=== PATIENT | female | born 1965 | race Caucasian/White ===

== ENCOUNTER 2019-04-05 10:29 | Emergency (ER) | payer OTHER ==
[~2019-04-05] VITALS: Ht 157.5 cm; Wt 73.5 kg
[2019-04-05 10:30] VITALS: BP_SYST 123
[2019-04-05] MEDS ORDERED: KETOROLAC TROMETHAMINE 60 MG/2 ML VIAL IM ONE (11:45)
[2019-04-05 13:07] VITALS: BP_SYST 118
== END 2019-04-05 13:05 | disposition home or self-care (01) ==
LOC: SED 10:29
DX: R10.32 Left lower quadrant pain (principal); Z90.49 Acquired absence of other specified parts of digestive tract; Z90.89 Acquired absence of other organs
CPT/HCPCS: 74018; 96372; 99283; J1885

== ENCOUNTER 2019-12-10 14:57 | Emergency (ER) | payer OTHER ==
[~2019-12-10] VITALS: Ht 157.5 cm; Wt 77.1 kg
[2019-12-10 15:09] VITALS: BP_SYST 171
--- NOTE | 2019-12-10 15:10 | NUR ---
Patient to ER bed hallway to gown for evaluation. Side rails up.
--- NOTE | 2019-12-10 15:16 | NUR ---
Patient came in from home for evaluation. Patient is awake, alert, and oriented x4. Patient states she has had left sided facial tingling since last night, she had 1 episode 1 week ago. No other complaints at this time.
--- NOTE | 2019-12-10 15:17 | NUR ---
ER Dr. Cruz at bedside examining patient.
[2019-12-10] MEDS ORDERED: cloNIDine HCL 0.1 MG TABLET PO ONE (15:30)
--- NOTE | 2019-12-10 15:55 | NUR ---
Patient ambulated to radiology, accompanied by reuse technician.
--- NOTE | 2019-12-10 15:59 | NUR ---
Returned from radiology, back to [facility].
--- NOTE | 2019-12-10 16:24 | NUR ---
Patient given written and verbal discharge instructions and verbalizes understanding. ER MD discussed with patient the results and treatment provided. Patient in stable condition. ID arm band removed. Rx of aspirin, hctz given. Patient educated on pain management and to follow up with PMD. Pain Scale 0/10. Opportunity for questions provided and answered. Medication side effect fact sheet provided.
[2019-12-10 16:25] VITALS: BP_SYST 146
== END 2019-12-10 16:25 | disposition home or self-care (01) ==
LOC: SED 14:57
DX: R20.2 Paresthesia of skin (principal); I10 Essential (primary) hypertension
CPT/HCPCS: 70450-TC; 99284

== ENCOUNTER 2022-06-20 13:00 | Emergency (ER) | payer BC, OTHER ==
[~2022-06-20] VITALS: Ht 157.5 cm; Wt 76.2 kg
--- NOTE | 2022-06-20 14:07 | NUR ---
MD DR. MENDEZ AT BEDSIDE EXAMINING PATIENT.
[2022-06-20 14:18] VITALS: BP_SYST 136
--- NOTE | 2022-06-20 14:20 | NUR ---
Patient to ER bed HALLWAY1 to [facility] for evaluation. Side rails up. Report RECEIVED FROM ALFA BEY.
--- NOTE | 2022-06-20 14:21 | NUR ---
PT CAME TO ED FROM HOME WITH C/O RT LOWER ABD PAIN X 2 WEEKS. PT STATES PAIN IS WORSE AT NIGHT AND CAUSES HER TO WAKEUP. PT HAS HX OF HYSTERECTOMY, GALLBLADDER REMOVAL AND BUNYON SX X2. PATIENT DENIES ANY OTHER MEDICAL HX. PATIENT A&OX4, CALM AND COOPERATIVE, VSS. CARE TO BE GIVEN ORDERED BY PROVIDER.
[2022-06-20 15:13] LABS: BASOPHILS % (AUTO) 0.3 % (0.0-2.0); EOSINOPHILS % (AUTO) 0.4 % (0.0-4.0); HEMATOCRIT 42.4 % (36-48); LYMPHOCYTES # (AUTO) 1.5 K/uL (1.0-5.5); LYMPHOCYTES % (AUTO) 23.5 % (20.5-51.5); MEAN CORPUSCULAR HEMOGLOBIN 30 pg (27-31); MEAN CORPUSCULAR HGB CONC 33 % (32-36); MEAN CORPUSCULAR VOLUME 90 fL (79.0-98.0); MONOCYTES # (AUTO) 0.4 K/uL (0.0-1.0); MONOCYTES % (AUTO) 5.7 % (1.7-9.3); NEUTROPHILS # (AUTO) 4.4 K/uL (1.8-7.7); NEUTROPHILS % (AUTO) 70.1 % (40.0-70.0); PLATELET COUNT (AUTO) 241 K/uL (130-430); RED BLOOD CELL COUNT(AUTO) 4.72 MIL/uL (4.2-6.2); RED CELL DISTRIBUTION WIDTH 13.6 % (9.0-15.0); WHITE BLOOD COUNT (AUTO) 6.3 K/uL (4.8-10.8)
[2022-06-20 15:19] LABS: ANION GAP 7 (5-15); CALCIUM 9.6 mg/dL (8.4-11.0); CHLORIDE 102 mmol/L (98-107); CREATININE 0.67 mg/dL (0.55-1.30); GLUCOSE 103 mg/dL (70-99); UREA NITROGEN, BLOOD 14 mg/dL (8-21)
[2022-06-20 15:20] LABS: GFR AFRICAN AMERICAN 116 mL/min (>90)
[2022-06-20 15:25] LABS: ALANINE AMINOTRANSFERASE 26 U/L (12-78); ALBUMIN 4.3 g/dL (3.4-4.8); AMYLASE 52 U/L (0-100); ASPARTATE AMINOTRANSFERASE 20 U/L (10-37); C-REACTIVE PROTEIN QUANT 0.7 mg/dL (0-0.5); LIPASE 248 U/L (73-393); TOTAL BILIRUBIN 0.9 mg/dL (0.0-1.0)
[2022-06-20 15:52] LABS: ACETONE, SERUM NEGATIVE (NEGATIVE)
[2022-06-20 16:16] LABS: BILIRUBIN,URINE NEGATIVE (NEGATIVE); BLOOD, URINE NEGATIVE (NEGATIVE); COLOR,URINE YELLOW (YELLOW); GLUCOSE,URINE NEGATIVE (NEGATIVE); KETONES,URINE NEGATIVE (NEGATIVE); LEUKOCYTE ESTERASE ,URINE TRACE (NEGATIVE); NITRITE, URINE NEGATIVE (NEGATIVE); PH,URINE 5.5 (5.0-8.0); PROTEIN URINE NEGATIVE (NEGATIVE); UROBILINOGEN,URINE 0.2 (0.2-1.0)
[2022-06-20 16:19] LABS: CLARITY/URINE SLIGHTLY HAZY (CLEAR)
[2022-06-20 16:44] LABS: BACTERIA,URINE FEW /HPF (None Seen); RBC,URINE 0-3 /HPF (0-3)
[2022-06-20] MEDS ORDERED: HYDR-3917 PO (16:46)
[2022-06-20] MEDS ORDERED: IBUP-1969 PO (16:46)
[2022-06-20] MEDS ORDERED: ONDA-8 TL (16:58)
--- NOTE | 2022-06-20 17:04 | NUR ---
Patient given written and verbal discharge instructions and verbalizes understanding. ER DR. VANESSA RIVERS discussed with patient the results and treatment provided. Patient in stable condition. ID arm band removed. Rx of IBUPROFEN, NORCO given. Patient educated on pain management and to follow up with PMD. Pain Scale 2/10. Opportunity for questions provided and answered. Medication side effect fact sheet provided.
== END 2022-06-20 17:00 | disposition home or self-care (01) ==
LOC: SED 13:00
DX: R10.31 Right lower quadrant pain (principal); Z79.899 Other long term (current) drug therapy
CPT/HCPCS: 36415; 76376; 80053; 81000; 82009; 82150; 83605; 83690; 84703; 85025; 86140; 99284

== ENCOUNTER 2023-11-26 22:05 | Emergency (ER) | payer BC ==
[~2023-11-26] VITALS: Ht 167.6 cm; Wt 80.7 kg
[~2023-11-26 22:05] MED LIST: HYDR-3917 PO; IBUP-1969 PO; ONDA-8 TL
[2023-11-26 22:23] VITALS: BP_SYST 129; PULSE 84; RESP 16; TEMP 98.5; O2SAT 96
[2023-11-26] MEDS: NACL 0.9% 1,000 ML IV ONE (23:07)
[2023-11-26] MEDS: PANTOPRAZOLE SODIUM 40 MG/VIAL (PROTONIX) IVP ONE (23:17)
[2023-11-26 23:23] LABS: BASOPHILS # (AUTO) 0.1 K/uL (0.0-0.2); BASOPHILS % (AUTO) 0.9 % (0.0-2.0); EOSINOPHILS # (AUTO) 0.1 K/uL (0.0-0.4); EOSINOPHILS % (AUTO) 1.2 % (0.0-4.0); HEMATOCRIT 37.4 % (36-48); HEMOGLOBIN 12.9 g/dL (12.0-16.0); LYMPHOCYTES # (AUTO) 0.4 K/uL (1.0-5.5); LYMPHOCYTES % (AUTO) 6.3 % (20.5-51.5); MEAN CORPUSCULAR HEMOGLOBIN 30 pg (27-31); MEAN CORPUSCULAR HGB CONC 34 % (32-36); MEAN CORPUSCULAR VOLUME 88 fL (79.0-98.0); MONOCYTES # (AUTO) 0.2 K/uL (0.0-1.0); MONOCYTES % (AUTO) 3.2 % (1.7-9.3); NEUTROPHILS % (AUTO) 88.4 % (40.0-70.0); PLATELET COUNT (AUTO) 198 K/uL (130-430); RED BLOOD CELL COUNT(AUTO) 4.26 MIL/uL (4.2-6.2); RED CELL DISTRIBUTION WIDTH 13.7 % (9.0-15.0); WHITE BLOOD COUNT (AUTO) 5.7 K/uL (4.8-10.8)
[2023-11-26 23:44] LABS: ALANINE AMINOTRANSFERASE 33 U/L (12-78); ALBUMIN 3.4 g/dL (3.4-4.8); ANION GAP 11 (5-15); ASPARTATE AMINOTRANSFERASE 14 U/L (10-37); BILIRUBIN,DIRECT 0.2 mg/dL (0.0-0.3); CALCIUM 8.2 mg/dL (8.4-11.0); CARBON DIOXIDE 26 mmol/L (23-29); CHLORIDE 104 mmol/L (98-107); GFR AFRICAN AMERICAN 132 mL/min (>90); GLUCOSE 128 mg/dL (74-106); LIPASE 27 U/L (16-77); POTASSIUM 3.7 mmol/L (3.5-5.1); SODIUM SERUM 141 mmol/L (136-145); TOTAL BILIRUBIN 1.3 mg/dL (0.0-1.0); UREA NITROGEN, BLOOD 9 mg/dL (8-21)
[2023-11-26 23:45] LABS: GFR NON AFRICAN-AMERICAN 109 mL/min (>90)
[2023-11-27] MEDS: MORPHINE 4 MG INJ. 4 MG/ML VIAL IVP ONE (00:17)
[2023-11-27] MEDS ORDERED: OMEP40CA20 PO (03:10)
[2023-11-27 03:17] VITALS: BP_SYST 108; PULSE 78; RESP 16; TEMP 97.2; O2SAT 95
== END 2023-11-27 03:17 | disposition home or self-care (01) ==
LOC: SED 22:05
DX: K29.00 Acute gastritis without bleeding (principal); R07.9 Chest pain, unspecified; Z79.899 Other long term (current) drug therapy
CPT/HCPCS: 99285; 96374; 96361; 80076; 80048; 83690; 85025; 84484; 36415; 93005; 74176; 96375; C9113; J7030; J2270